=== PATIENT | female | born 1995 ===

== ENCOUNTER 2019-01-05 14:19 | Inpatient (IN) ==
[2019-01-05] MEDS ORDERED: ONDANSETRON 4 MG/2 ML VIAL IV PRN (15:07)
[2019-01-05] MEDS ORDERED: ACETAMINOPHEN 325 MG TABLET PO PRN (15:07)
[2019-01-05] MEDS ORDERED: BUTORPHANOL 2 MG/ML VIAL IV PRN (15:07)
[2019-01-05 15:30] LABS: Basophils % 0.1 % (0.0-0.8); Eosinophils % 0.5 % (0.00-10.9); Hematocrit 33.8 VOL% (35.7-47.0); Hemoglobin 10.9 GM/DL (12.0-16.0); Immature Granulocytes % 0.5 %; Immature Granulocytes Absolute 0.04 #; Lymphocytes # 1.2 10*3/uL (1.4-4.0); Lymphocytes % 14.1 % (21.3-54.2); Mean Corpuscular HGB Conc 32.2 GM/DL (32-36); Mean Corpuscular Volume 82.4 FL (87-102); Mean Platelet Volume 10.3 FL (9.6-12.0); Monocytes % 4.2 % (1.7-12.7); Neutrophils % 80.6 % (38.7-73.9); Platelet Count 241 T/CUMM (130-400); Red Cell Distribution Width 14.2 % (9.3-17.3); White Blood Count 8.3 T/CUMM (4-12)
[2019-01-05] MEDS ORDERED: LACTATED RINGERS 1,000 ML IV SCH (15:30)
[2019-01-05 15:54] LABS: Alanine Aminotransferase 9 U/L (13-56); Albumin 2.2 G/DL (3.4-5.0); Alkaline Phosphatase 185 U/L (45-117); Aspartate Amino Transferase 13 U/L (0-37); Bilirubin,Total < 0.39 MG/DL (0.2-1.0); Blood Urea Nitrogen 9 MG/DL (7-18); Calcium 8.8 MG/DL (8.5-10.1); Estimated Glom Filtration Rate 143 ML/MIN; Glucose 122 MG/DL (74-106); Osmolality,Calculated 282.1 MOS/KG (273-304); Total Protein 6.6 G/DL (6.4-8.3)
[2019-01-06] MEDS ORDERED: NALOXONE 0.4 MG/ML VIAL IV PRN (00:35)
[2019-01-06] MEDS ORDERED: LACTATED RINGERS 1,000 ML IV ONE (00:35)
[2019-01-06] MEDS ORDERED: FAMOTIDINE 20 MG/2 ML VIAL IV ONE (00:35)
[2019-01-06] MEDS ORDERED: ePHEDrine 50 MG/ML AMP IV PRN (00:35)
[2019-01-06] MEDS ORDERED: CITRIC ACID/SODIUM CITRATE 30 ML UDCUP PO ONE (00:35)
[2019-01-06] MEDS ORDERED: diphenhydrAMINE 50 MG/1 ML VIAL IV PRN (00:35)
[2019-01-06] MEDS ORDERED: LACTATED RINGERS 1,000 ML IV SCH (01:00)
[2019-01-06] MEDS ORDERED: fentaNYL 2 MCG/ROPIV 0.2% EPID 100 ML EPIDURAL SCH (01:00)
[2019-01-06] MEDS ORDERED: OXYTOCIN/LR 20 UNIT/1,000 ML BAG IV ONE (01:01)
[2019-01-06] MEDS ORDERED: TRANEXAMIC ACID 1,000 MG/10 ML VIAL ONE (01:01)
[2019-01-06] MEDS ORDERED: miSOPROStoL 200 MCG TABLET ONE (01:01)
[2019-01-06] MEDS ORDERED: CARBOPROST TROMETHAMINE 250 MCG/ML AMP IM ONE (01:02)
[2019-01-06] MEDS ORDERED: METHYLERGONOVINE 0.2 MG/1 ML AMP ONE (01:02)
[2019-01-06] MEDS ORDERED: SODIUM CHLORIDE 0.9% 100 ML IV ONE (01:02)
[2019-01-06] MEDS: AMPICILLIN INJ 2,000 MG in SODIUM CHLORIDE 0.9% 100 ML IV SCH ×2 (01:34→07:47)
[2019-01-06] MEDS ORDERED: OXYTOCIN/LR 20 UNIT/1,000 ML BAG IV SCH (02:00)
[2019-01-06] MEDS ORDERED: AMPICILLIN INJ 2,000 MG in SODIUM CHLORIDE 0.9% 100 ML IV SCH (02:00)
[2019-01-06] MEDS ORDERED: LIDOCAINE 1% 50 ML VIAL ONE (10:44)
[2019-01-06 10:48] LABS: Cord Venous Blood HCO3 18.6 MMOL/L; Cord Venous Blood PCO2 43.1 MMHG; Cord Venous Blood PO2 27.6
[2019-01-06] MEDS ORDERED: MEASLES/MUMPS/RUBELLA VACCINE 0.5 ML VIAL SUBCUT ONE (13:26)
[2019-01-06] MEDS ORDERED: DIPH/TET/ACEL PERT BOOSTER VACCINE 0.5 ML VIAL IM ONE (13:26)
[2019-01-06] MEDS ORDERED: WITCH HAZEL PADS 100/JAR TOP PRN (13:26)
[2019-01-06] MEDS ORDERED: BENZOCAINE 20%/MENTHOL 0.5% SPRAY 56 GM CAN TOP PRN (13:26)
[2019-01-06] MEDS ORDERED: HYDROCORTISONE 2.5% RECTAL CREAM 30 GM TUBE TOP PRN (13:26)
[2019-01-06] MEDS ORDERED: LANOLIN 50% CREAM 0.3 OZ TUBE TOP PRN (13:26)
[2019-01-06] MEDS ORDERED: oxyCODONE/ACETAMINOPHEN 5-325 MG TABLET PO PRN ×2 (13:26)
[2019-01-06] MEDS ORDERED: BISACODYL 10 MG SUPP RECTAL PRN (13:26)
[2019-01-06] MEDS ORDERED: RHO(D) IMMUNE GLOBULIN 300 MCG SYRINGE IM ONE (13:26)
[2019-01-06] MEDS: IBUPROFEN 800 MG TABLET PO PRN (21:11)
[2019-01-06] MEDS: DOCUSATE SODIUM 100 MG CAPSULE PO SCH (21:12)
[2019-01-07 05:44] LABS: Basophils % 0.1 % (0.0-0.8); Eosinophils # 0.1 10*3/uL (0.0-0.87); Eosinophils % 0.8 % (0.00-10.9); Hematocrit 26.2 VOL% (35.7-47.0); Hemoglobin 8.5 GM/DL (12.0-16.0); Immature Granulocytes % 0.3 %; Immature Granulocytes Absolute 0.04 #; Lymphocytes # 1.7 10*3/uL (1.4-4.0); Lymphocytes % 14.8 % (21.3-54.2); Mean Corpuscular HGB Conc 32.4 GM/DL (32-36); Mean Corpuscular Volume 82.4 FL (87-102); Mean Platelet Volume 10.4 FL (9.6-12.0); Monocytes % 4.3 % (1.7-12.7); Neutrophils % 79.7 % (38.7-73.9); Platelet Count 176 T/CUMM (130-400); Red Blood Count 3.18 MC/CUMM (3.8-5.5); Red Cell Distribution Width 14.2 % (9.3-17.3); White Blood Count 11.7 T/CUMM (4-12)
[2019-01-07] MEDS: IBUPROFEN 800 MG TABLET PO PRN ×2 (06:41→16:23)
[2019-01-07] MEDS: DOCUSATE SODIUM 100 MG CAPSULE PO SCH ×2 (08:29→21:20)
[2019-01-08 08:22] VITALS: BP 119/73
[2019-01-08] MEDS: DOCUSATE SODIUM 100 MG CAPSULE PO SCH (09:14)
[2019-01-08] MEDS: IBUPROFEN 800 MG TABLET PO PRN (09:14)
[2019-01-08] MEDS ORDERED: INFLUENZA VIRUS VACCINE 0.5 ML SYRINGE IM ONE (10:59)
== END 2019-01-08 11:50 | disposition home or self-care (01) | DRG 560 ==
LOC: N.LDOUT 14:19 → N.LD 14:25 → N.OB 01-06 13:23
PROVIDERS: ADMIT Obstetrics & Gynecology; ATTEND Obstetrics & Gynecology

== ENCOUNTER 2020-09-23 01:03 | Inpatient (IN) ==
[2020-09-23] MEDS ORDERED: ONDANSETRON 4 MG/2 ML VIAL IV PRN (01:12)
[2020-09-23] MEDS: LACTATED RINGERS 1,000 ML IV SCH ×3 (01:36→10:23)
[2020-09-23 01:51] LABS: Basophils % 0.1 % (0.0-0.8); Eosinophils # 0.1 10*3/uL (0.0-0.87); Eosinophils % 1.5 % (0.00-10.9); Hematocrit 36.3 VOL% (35.7-47.0); Hemoglobin 11.7 GM/DL (12.0-16.0); Immature Granulocytes % 0.6 %; Immature Granulocytes Absolute 0.06 #; Lymphocytes # 1.6 10*3/uL (1.4-4.0); Lymphocytes % 17.2 % (21.3-54.2); Mean Corpuscular HGB Conc 32.2 GM/DL (32-36); Mean Corpuscular Volume 84.6 FL (87-102); Mean Platelet Volume 9.5 FL (9.6-12.0); Monocytes % 5.2 % (1.7-12.7); Neutrophils % 75.4 % (38.7-73.9); Platelet Count 254 T/CUMM (130-400); Red Blood Count 4.29 MC/CUMM (3.8-5.5); Red Cell Distribution Width 14.1 % (9.3-17.3); White Blood Count 9.3 T/CUMM (4-12)
[2020-09-23] MEDS ORDERED: OXYTOCIN/LR 20 UNIT/1,000 ML BAG IV SCH (02:00)
[2020-09-23 02:10] LABS: Alanine Aminotransferase < 6 U/L (13-56); Albumin 2.2 G/DL (3.4-5.0); Alkaline Phosphatase 157 U/L (45-117); Aspartate Amino Transferase 11 U/L (0-37); Bilirubin,Total < 0.39 MG/DL (0.20-1.00); Blood Urea Nitrogen 12 MG/DL (7-18); Carbon Dioxide 22 MMOL/L (21-32); Estimated Glom Filtration Rate 158 ML/MIN; Glucose 90 MG/DL (74-106); Osmolality,Calculated 272.8 MOS/KG (273-304); Sodium 137 MMOL/L (136-145); Total Protein 7.1 G/DL (6.4-8.2)
[2020-09-23] MEDS ORDERED: AMPICILLIN INJ 2,000 MG in SODIUM CHLORIDE 0.9% 100 ML IV ONE ×2 (02:30→07:00)
[2020-09-23] MEDS ORDERED: TERBUTALINE 1 MG/1 ML VIAL SUBCUT ONE (05:24)
[2020-09-23] MEDS ORDERED: hydrOXYzine HCL 25 MG/1 ML VIAL IM PRN (05:25)
[2020-09-23] MEDS ORDERED: diphenhydrAMINE 50 MG/1 ML VIAL IV PRN ×2 (05:25)
[2020-09-23] MEDS ORDERED: LACTATED RINGERS 250 ML IV PRN (05:25)
[2020-09-23] MEDS ORDERED: PROMETHAZINE 25 MG/1 ML VIAL IM ONE (05:25)
[2020-09-23] MEDS ORDERED: NALOXONE 0.4 MG/ML VIAL IV PRN (05:25)
[2020-09-23] MEDS ORDERED: FAMOTIDINE 20 MG/2 ML VIAL IV ONE (05:27)
[2020-09-23] MEDS ORDERED: CITRIC ACID/SODIUM CITRATE 30 ML UDCUP PO ONE (05:27)
[2020-09-23] MEDS: fentaNYL 2 MCG/ROPIV 0.2% EPID 100 ML EPIDURAL SCH ×2 (06:48→14:15)
[2020-09-23] MEDS: ePHEDrine 50 MG/ML VIAL IV PRN ×2 (06:53→06:58)
[2020-09-23] MEDS: OXYTOCIN/LR 20 UNIT/1,000 ML BAG IV SCH ×2 (08:35→15:40)
[2020-09-23 09:00] LABS: Bacteria,Urine Occasional /HPF (Few); Bilirubin,Urine Negative (Negative); Blood, Urine Negative (Negative); Glucose,Urine (UA) Negative (Negative); Ketones,Urine Negative (Negative); Mucus,Urine Occasional /LPF (Occasional); Nitrite,Urine Negative (Negative); Protein,Urine Negative; RBC,Urine <1 /HPF (0-4); Squamous Epithelial Cell,Urine Few /HPF (0-10); Urine Appearance CLEAR (Clear); Urine Color Yellow (Yellow); Urine Specific Gravity 1.027 (1.001-1.035); Urine Urobilinogen < 2.0 EU/DL (0.2-1.0)
[2020-09-23] MEDS: AMPICILLIN INJ 1,000 MG in SODIUM CHLORIDE 0.9% 100 ML IV SCH ×2 (10:42→15:55)
[2020-09-23] MEDS ORDERED: miSOPROStoL 200 MCG TABLET ONE (14:21)
[2020-09-23] MEDS ORDERED: TRANEXAMIC ACID 1,000 MG/10 ML VIAL ONE (14:21)
[2020-09-23] MEDS ORDERED: METHYLERGONOVINE 0.2 MG/1 ML AMP ONE (14:22)
[2020-09-23] MEDS ORDERED: CARBOPROST TROMETHAMINE 250 MCG/ML AMP IM ONE (14:22)
[2020-09-23 15:11] LABS: Cord Venous Blood HCO3 18.7 MMOL/L; Cord Venous Blood PCO2 53.5 MMHG; Cord Venous Blood PO2 30.7
[2020-09-23] MEDS ORDERED: WITCH HAZEL PADS 100/JAR TOP PRN (17:33)
[2020-09-23] MEDS ORDERED: LANOLIN 50% CREAM 0.3 OZ TUBE TOP PRN (17:33)
[2020-09-23] MEDS ORDERED: DIPH/TET/ACEL PERT BOOSTER VACCINE 0.5 ML VIAL IM ONE (17:33)
[2020-09-23] MEDS ORDERED: BENZOCAINE 20%/MENTHOL 0.5% SPRAY 56 GM CAN TOP PRN (17:33)
[2020-09-23] MEDS ORDERED: HYDROCORTISONE 2.5% RECTAL CREAM 30 GM TUBE TOP PRN (17:33)
[2020-09-23] MEDS ORDERED: RHO(D) IMMUNE GLOBULIN 300 MCG SYRINGE IM ONE (17:33)
[2020-09-23] MEDS ORDERED: oxyCODONE/ACETAMINOPHEN 5-325 MG TABLET PO PRN ×2 (17:33)
[2020-09-23] MEDS ORDERED: BISACODYL 10 MG SUPP RECTAL PRN (17:33)
[2020-09-23] MEDS ORDERED: ACETAMINOPHEN 325 MG TABLET PO PRN (17:33)
[2020-09-23] MEDS ORDERED: OXYTOCIN/LR 20 UNIT/1,000 ML BAG IV ONE (17:33)
[2020-09-23] MEDS ORDERED: MEASLES/MUMPS/RUBELLA VACCINE 0.5 ML VIAL SUBCUT ONE (17:33)
[2020-09-23] MEDS: IBUPROFEN 800 MG TABLET PO PRN (17:55)
[2020-09-23] MEDS: DOCUSATE SODIUM 100 MG CAPSULE PO SCH (21:14)
[2020-09-24] MEDS: IBUPROFEN 800 MG TABLET PO PRN ×2 (04:08→18:27)
[2020-09-24 05:47] LABS: Basophils % 0.1 % (0.0-0.8); Eosinophils # 0.1 10*3/uL (0.0-0.87); Eosinophils % 1.2 % (0.00-10.9); Hematocrit 30.5 VOL% (35.7-47.0); Hemoglobin 9.9 GM/DL (12.0-16.0); Immature Granulocytes % 0.3 %; Immature Granulocytes Absolute 0.03 #; Lymphocytes # 1.3 10*3/uL (1.4-4.0); Lymphocytes % 14.3 % (21.3-54.2); Mean Corpuscular HGB Conc 32.5 GM/DL (32-36); Mean Corpuscular Volume 85.4 FL (87-102); Mean Platelet Volume 9.5 FL (9.6-12.0); Monocytes % 4.6 % (1.7-12.7); Neutrophils % 79.5 % (38.7-73.9); Platelet Count 212 T/CUMM (130-400); Red Blood Count 3.57 MC/CUMM (3.8-5.5); Red Cell Distribution Width 14.1 % (9.3-17.3); White Blood Count 9.4 T/CUMM (4-12)
[2020-09-24] MEDS: FERROUS SULFATE 325 MG TABLET PO SCH (08:49)
[2020-09-24] MEDS: DOCUSATE SODIUM 100 MG CAPSULE PO SCH ×2 (08:49→21:40)
[2020-09-25] MEDS: DOCUSATE SODIUM 100 MG CAPSULE PO SCH (09:10)
[2020-09-25] MEDS: FERROUS SULFATE 325 MG TABLET PO SCH (09:10)
[2020-09-25 09:44] VITALS: BP 115/72
== END 2020-09-25 12:45 | disposition home or self-care (01) | DRG 560 ==
LOC: N.LDOUT 01:03 → N.LD 01:06 → N.OB 17:35
PROVIDERS: ADMIT Obstetrics & Gynecology; ATTEND Obstetrics & Gynecology